=== PATIENT | male | born 1990 | race Caucasian/White ===

== ENCOUNTER 2019-03-31 | Emergency (ER) | payer SELFPAY ==
[2019-03-31] MEDS ORDERED: Diphtheria,Pertussis(Acell),Tetanus Vaccine 0.5 ML Syringe IM ONE (00:25)
[2019-03-31] MEDS ORDERED: Bacitracin Oint 1 GM U/D Packet TOP ONE (00:26)
--- NOTE | 2019-03-31 00:29 | EDM.PDOC ---
ED HPI GENERAL MEDICAL PROBLEM - General Chief Complaint: Laceration Stated Complaint: CUT ON LEG Time Seen by Provider: 03/31/19 00:12 - History of Present Illness INITIAL COMMENTS - FREE TEXT/NARRATIVE: HISTORY AND PHYSICAL: History of present illness: Patient is 28-year-old black male with no signal past medical history presents with a concern of injury to the fourth digit of his right foot this was sharp force trauma she sustained 2 small lacerations to his fourth digit patient refuses tetanus update Review of systems: As per history of present illness and below otherwise all systems reviewed and negative. Past medical history: As per history of present illness and as reviewed below otherwise noncontributory. Surgical history: As per history of present illness and as reviewed below otherwise noncontributory. Social history: No reported history of drug or alcohol abuse. Family history: As per history of present illness and as reviewed below otherwise noncontributory. Physical exam: HEENT: Atraumatic, normocephalic, pupils reactive, negative for conjunctival pallor or scleral icterus, mucous membranes moist, throat clear, neck supple, nontender, trachea midline. Lungs: Clear to auscultation, breath sounds equal bilaterally, chest nontender. Heart: S1S2, regular, negative for clicks, rubs, or JVD. Abdomen: Soft, nondistended, nontender. Negative for masses or hepatosplenomegaly. Negative for costovertebral tenderness. Pelvis: Stable nontender. Genitourinary: Deferred. Rectal: Deferred. Extremities: patient is to moderate left laceration on dorsal aspect of his fourth digit approximately 1-1/2 cm and 1 cm is no tendon involvement CMS neurovascular is unremarkable was good hemostasis Neuro: Awake, alert, oriented. Cranial nerves II through XII unremarkable. Cerebellum unremarkable. Motor and sensory unremarkable throughout. Exam nonfocal. Diagnostics: None Therapeutics: Wound was irrigated with 1.9 normal saline prepped and draped in sterile manner and anesthetized with 1% lidocaine without epinephrine and closed with 4-0 nylon interrupted sutures Impression: #1 acute right foot injury ( laceration fourth digit) Definitive disposition and diagnosis as appropriate pending reevaluation and review of above. ED ROS GENERAL - Review of Systems Review Of Systems: ROS reveals no pertinent complaints other than HPI. ED EXAM, SKIN/RASH Exam: See Below (See dictation) Course - Orders/Labs/Meds Orders: Active Orders 24 hr Category Date Time Status Vaccines to be Administered [RC] PER UNIT ROUTINE Care 03/31/19 00:25 Active Bacitracin [Bacitracin Oint 1 GM] Med 03/31/19 00:26 Once 1 dose TOP ONETIME ONE Medication Orders Bacitracin (Bacitracin Oint 1 Gm) 1 dose TOP ONETIME ONE Stop: 03/31/19 00:27 Meds: Medications Generic Name Dose Route Start Last Admin Trade Name Freq PRN Reason Stop Dose Admin Bacitracin 1 dose 03/31/19 00:26 Bacitracin Oint 1 Gm TOP 03/31/19 00:27 ONETIME ONE Discontinued Medications Generic Name Dose Route Start Last Admin Trade Name Freq PRN Reason Stop Dose Admin Diphtheria/Tetanus/Acell Pertussis 0.5 ml 03/31/19 00:25 Adacel IM 03/31/19 00:26 .ONCE ONE Lidocaine HCl Confirm 03/31/19 00:14 Xylocaine-Mpf 1% Administered 03/31/19 00:15 Dose 5 ml .ROUTE .STK-MED ONE Lidocaine HCl Confirm 03/31/19 00:20 Xylocaine-Mpf 1% Administered 03/31/19 00:21 Dose 5 ml .ROUTE .STK-MED ONE Lidocaine HCl 5 ml 03/31/19 00:25 Xylocaine-Mpf 1% INJECT 03/31/19 00:26 ONETIME ONE Lidocaine HCl 5 ml 03/31/19 00:25 Xylocaine-Mpf 1% INJECT 03/31/19 00:26 ONETIME ONE Departure - Departure Time of Disposition: 00:28 Disposition: Home, Self-Care 01 Condition: Good Clinical Impression: Laceration - Discharge Information Additional Instructions: The following information is given to patients seen in the emergency department who are being discharged to home. This information is to outline your options for follow-up care. We provide all patients seen in our emergency department with a follow-up referral. The need for follow-up, as well as the timing and circumstances, are variable depending upon the specifics of your emergency department visit. If you don't have a primary care physician on staff, we will provide you with a referral. We always advise you to contact your personal physician following an emergency department visit to inform them of the circumstance of the visit and for follow-up with them and/or the need for any referrals to a consulting specialist. The emergency department will also refer you to a specialist when appropriate. This referral assures that you have the opportunity for followup care with a specialist. All of these measure are taken in an effort to provide you with optimal care, which includes your followup. Under all circumstances we always encourage you to contact your private physician who remains a resource for coordinating your care. When calling for followup care, please make the office aware that this follow-up is from your recent emergency room visit. If for any reason you are refused follow-up, please contact the [facility] emergency department at and asked to speak to the emergency department charge nurse. Wound care is discussed suture removal 10-14 days return as needed as discussed - My Orders Last 24 Hours: My Active Orders 03/31/19 00:25 Vaccines to be Administered [RC] PER UNIT ROUTINE 03/31/19 00:26 Bacitracin [Bacitracin Oint 1 GM] 1 dose TOP ONETIME ONE - Assessment/Plan Last 24 Hours: My Active Orders 03/31/19 00:25 Vaccines to be Administered [RC] PER UNIT ROUTINE 03/31/19 00:26 Bacitracin [Bacitracin Oint 1 GM] 1 dose TOP ONETIME ONE
== END 2019-03-31 00:45 | disposition home or self-care (01) ==
LOC: MW.ED
DX: S91.114A Laceration without foreign body of right lesser toe(s) without damage to nail, initial encounter (principal); Z23 Encounter for immunization; W20.8XXA Other cause of strike by thrown, projected or falling object, initial encounter
CPT/HCPCS: 12001; 90471; 90715; 99282; J2001

== ENCOUNTER 2019-04-08 21:50 | Emergency (ER) | payer SELFPAY | END 2019-04-08 22:30 | disposition left against medical advice (07) | LOC: MW.ED 21:50 | DX: Z53.21 Procedure and treatment not carried out due to patient leaving prior to being seen by health care provider (principal) ==